=== PATIENT | female | born 1955 | race Caucasian/White ===

== ENCOUNTER → 2017-06-15 | Outpatient (CLI) | payer MEDICARE, OTHER ==
[~2017-06-15] MED LIST: AC500T; ACETAMINOPHEN; CENESTIN; CLN150C PO; DICL50TA3 PO; ESTR1POW11 MC; ORPH100T PO; TRM50T PO; [UNRECOGNIZED DRUG - OTHER]
== END ==
LOC: RAD 11:05
PROVIDERS: ATTEND Nurse Practitioner Family
DX: Z12.31 Encounter for screening mammogram for malignant neoplasm of breast (principal)
CPT/HCPCS: 77067

== ENCOUNTER → 2017-08-06 | Outpatient (CLI) | payer MEDICARE ==
--- NOTE | 2017-08-06 08:51 | Diagnostic Imaging Report ---
INDICATION: Left breast density. Patient presents for additional views. COMPARISON: Screening study from 06/15/2017. TECHNIQUE: The patient returned and spot compression CC and mediolateral 3-D mammography was performed. In addition, a conventional mediolateral 3-D mammogram was performed. The current study was also evaluated with a Computer Aided Detection (CAD) system. FINDINGS: The left breast is markedly dense and heterogeneous. No mass in the retroareolar left breast is identified with additional views. This area may represent fibroglandular tissue. There are benign calcifications present. IMPRESSION: Additional views fail to demonstrate a discrete mass. Even so, further evaluation of the retroareolar left breast with ultrasound is recommended. ACR BI-RADS Category 0: Incomplete. (Needs additional imaging evaluation). Result letter will be mailed to the patient. Note: At least 10% of breast cancer is not imaged by mammography. Dictated by: Dictated on workstation # [id number]
--- NOTE | 2017-08-06 09:25 | Diagnostic Imaging Report ---
Indication: Left breast density. Comparison: Correlation is made with diagnostic mammogram earlier the same day. The current study was also evaluated with a Computer Aided Detection (CAD) system. Findings: Sonographic interrogation of the retroareolar left breast was performed. There is a tiny cyst at the 2 o'clock location of the left breast, 3 cm from the nipple measuring 8 mm x 6 mm. There are some mildly prominent retroareolar ducts present. No solid masses detected. Impression: BI-RADS category 2 Mildly prominent retroareolar ducts are noted and there is a small simple cyst present. No suspicious abnormality is detected. The patient may return to routine annual screening mammography. ACR BI-RADS Category 2: Benign findings. Result letter will be mailed to the patient. Note: At least 10% of breast cancer is not imaged by mammography. Dictated by: Dictated on workstation # [id number]
== END ==
LOC: RAD 08:26
PROVIDERS: ATTEND Nurse Practitioner Family
DX: R92.8 Other abnormal and inconclusive findings on diagnostic imaging of breast (principal)
CPT/HCPCS: 76642

== ENCOUNTER → 2020-01-19 | Outpatient (CLI) | payer MEDICARE ==
--- NOTE | 2020-01-22 09:51 | Diagnostic Imaging Report ---
INDICATION: Routine screening. Comparison is made with prior mammogram from 06/15/2017. 2-D and 3-D bilateral screening mammography was performed with CAD. Both breasts remain heterogeneously dense, limiting the sensitivity of mammography. Occasional benign calcifications are noted. No dominant mass or malignant appearing microcalcifications are seen. Axillae are unremarkable. IMPRESSION: BI-RADS Category 2. No mammographic features suspicious for malignancy are identified. ACR BI-RADS Category 2: Benign findings. Result letter will be mailed to the patient. Note: At least 10% of breast cancer is not imaged by mammography. Dictated by: Dictated on workstation # [id number]
== END ==
LOC: RAD 14:54
PROVIDERS: ATTEND Nurse Practitioner Family
DX: Z12.31 Encounter for screening mammogram for malignant neoplasm of breast (principal); Z79.890 Hormone replacement therapy
CPT/HCPCS: 77063; 77067

== ENCOUNTER 2023-04-16 11:34 | Emergency (ER) | payer MEDICARE ==
[~2023-04-16] VITALS: Ht 160 cm; Wt 99.7 kg
--- NOTE | 2023-04-16 12:11 | ED Back Pain ---
General Chief Complaint: Back Problems Stated Complaint: BACK PAIN Nursing Triage Note: BACK PAIN STATEDT 04/10/23. PROGRESSIVELY GETTING WORSE. WENT TO PCP ON WEDNESDAY. RECEIVED ORAL STERIODS. WORKED UP FOR UTI AND NEGATIVE. FINISHED ORAL STERIODS TODAY BACK PAIN IS STILL CONTINUING TO GET WORSE. 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 PAIN IS IN THE LEFT FLANK THAT RADIATES ANTERIORLY AND DOWN THE ANTERIOR LEFT THIGH. Source of Information: Patient Exam Limitations: No Limitations History of Present Illness Date Seen by Provider: Apr 16, 2023 Time Seen by Provider: 11:59 Initial Comments 67-year-old female presents to the ER with complaint of left lower back pain close to her buttock that radiates to her left hip and to her anterior left thigh to just above her left knee. She states that it started out as a left lower back pain on 04/10/2023. She reports that this has progressively gotten worse. She saw her primary care provider on Wednesday who gave her a shot of Toradol and a steroid burst. She took her last dose of the steroid this morning. She reports that the pain was getting better, but became worse again yesterday. She went and saw her primary again today who gave her a shot of Toradol and referred her to the ER. She denies saddle paresthesia, bowel or bladder incontinence. She reports intermittent weakness in her legs, states that she thinks it is related to her bad knees, states there has been no change in this. She already takes Flexeril and hydrocodone for chronic knee pain, states she took these this morning. She denies fevers and dysuria. She states that her primary care provider checked her urine to evaluate for kidney infection, states she did not have an infection. Allergies and Home Medications Allergies Coded Allergies: Acetaminophen (Unverified Allergy, Mild, 11/02/08) Amoxicillin (Unverified Allergy, Mild, 10/05/08) Erythromycin Base (Unverified Allergy, Mild, 10/05/08) Ibuprofen (Unverified Allergy, Mild, 10/05/08) Ketorolac (Unverified Allergy, Mild, ITCHING, 11/02/08) Potassium Clavulanate (Unverified Allergy, Mild, 10/05/08) Propoxyphene (Unverified Allergy, Mild, 11/02/08) Tramadol (Unverified Allergy, Mild, 11/02/08) Uncoded Allergies: [id number] (DARVOCET-N 100) (Allergy, Mild, 10/05/08) PCN (Allergy, Mild, 11/02/08) Patient Home Medication List Home Medication List Reviewed: Yes Estradiol Hemihydrt,Micronized (Estradiol) 1 Gm Powder, 1 GM MC DAILY, (Reported) Entered as Reported by: SCAR MACDONALD on 07/08/132047 Orphenadrine Citrate (Norflex) 100 Mg Tablet.sa, 100 MG PO BID Prescribed by: GERALD FLOYD on 07/09/13 002 Review of Systems Constitutional: see HPI Past Kiscvcu-Mqlgme-Rcqnnz Hx Immunizations Up To Date Influenza Vaccine Up-to-Date: No; Not Current Past Medical History Reproductive Disorders: No Sexually Transmitted Disease: No Physical Exam Vital Signs Vital Signs - First Documented 04/16/23 11:41 Temp 36.4 Pulse 83 Resp 20 B/P (MAP) 142/85 (104) Pulse Ox 96 O2 Delivery Room Air Capillary Refill : Less Than 3 Seconds Height, Weight, BMI Height: '" Weight: 192lbs. oz. 87.284473nc; 38.00 BMI Method: General Appearance: WD/WN, Mild Distress Neck: Normal Inspection, Supple Cardiovascular: Regular Rate, Rhythm Respiratory: Lungs Clear, Normal Breath Sounds, No Accessory Muscle Use, No Re spiratory Distress Back: No Vertebral Tenderness Extremity: Normal Inspection, Normal Range of Motion Neurologic/Psychiatric: Alert, Normal Mood/Affect Skin: Normal Color, Warm/Dry Progress/Results/Core Measures Results/Orders Lab Results Laboratory Tests Test 04/16/23 13:00 04/16/23 13:46 Range/Units Urine Color YELLOW Urine Clarity CLEAR Urine pH 5.5 5-9 Urine Specific [place] 1.025 H 1.016-1.022 Urine Protein TRACE H NEGATIVE Urine Glucose (UA) NEGATIVE NEGATIVE Urine Ketones 2+ H NEGATIVE Urine Nitrite NEGATIVE NEGATIVE Urine Bilirubin 1+ H NEGATIVE Urine Urobilinogen 0.2 < = 1.0 MG/DL Urine Leukocyte Esterase NEGATIVE NEGATIVE Urine RBC (Auto) TRACE H NEGATIVE Urine RBC 0-2 /HPF Urine WBC 0-2 /HPF Urine Squamous Epithelial Cells 5-10 /HPF Urine Crystals PRESENT H /LPF Urine Amorphous Sediment MOD ROSI URATES H /LPF Urine Bacteria TRACE /HPF Urine Casts NONE /LPF Urine Mucus LARGE H /LPF Urine Culture Indicated NO White Blood Count 10.3 4.3-11.0 10^3/uL Red Blood Count 5.26 H 3.80-5.11 10^6/uL Hemoglobin 15.1 11.5-16.0 g/dL Hematocrit 47 35-52 % Mean Corpuscular Volume 90 80-99 fL Mean Corpuscular Hemoglobin 29 25-34 pg Mean Corpuscular Hemoglobin Concent 32 32-36 g/dL Red Cell Distribution Width 13.7 10.0-14.5 % Platelet Count 369 130-400 10^3/uL Mean Platelet Volume 10.0 9.0-12.2 fL Immature Granulocyte % (Auto) 0 % Neutrophils (%) (Auto) 93 H 42-75 % Lymphocytes (%) (Auto) 6 L 12-44 % Monocytes (%) (Auto) 1 0-12 % Eosinophils (%) (Auto) 0 0-10 % Basophils (%) (Auto) 0 0-10 % Neutrophils # (Auto) 9.6 H 1.8-7.8 10^3/uL Lymphocytes # (Auto) 0.6 L 1.0-4.0 10^3/uL Monocytes # (Auto) 0.1 0.0-1.0 10^3/uL Eosinophils # (Auto) 0.0 0.0-0.3 10^3/uL Basophils # (Auto) 0.0 0.0-0.1 10^3/uL Immature Granulocyte # (Auto) 0.0 0.0-0.1 10^3/uL Neutrophils % (Manual) 95 % Lymphocytes % (Manual) 4 % Monocytes % (Manual) 1 % Blood Morphology Comment NORMAL Sodium Level 137 135-145 MMOL/L Potassium Level 4.0 3.6-5.0 MMOL/L Chloride Level 100 98-107 MMOL/L Carbon Dioxide Level 21 21-32 MMOL/L Anion Gap 16 H 5-14 MMOL/L Blood Urea Nitrogen 17 7-18 MG/DL Creatinine 0.84 0.60-1.30 MG/DL Estimat Glomerular Filtration Rate 76 BUN/Creatinine Ratio 20 Glucose Level 143 H 70-105 MG/DL Calcium Level 9.6 8.5-10.1 MG/DL Corrected Calcium 9.2 8.5-10.1 MG/DL Total Bilirubin 0.8 0.1-1.0 MG/DL Aspartate Amino Transf (AST/SGOT) 19 5-34 U/L Alanine Aminotransferase (ALT/SGPT) 18 0-55 U/L Alkaline Phosphatase 74 40-136 U/L Total Protein 8.7 H 6.4-8.2 GM/DL Albumin 4.5 3.2-4.5 GM/DL My Orders Orders - ALEJANDRA MORIN APRN Orphenadrine Inj (Ed Only) (Orphenadrine (04/16/23 12:15) Fentanyl Injection (Fentanyl Injection (04/16/23 12:15) Dexamethasone Injection (Dexamethasone (04/16/23 12:15) Ua Culture If Indicated (04/16/23 12:12) Comprehensive Metabolic Panel (04/16/23 13:42) Ed Iv/Invasive Line Start (04/16/23 13:42) Cbc And Automated Diff (04/16/23 13:42) Ct Abdomen/Pelvis Wo (04/16/23 13:42) Hydromorphone Injection (Hydromorphone (04/16/23 13:45) Manual Differential (04/16/23 13:46) Medications Given in ED Current Medications Medications Dose Ordered Sig/Debora Route Start Time Stop Time Status Last Admin Dose Admin Dexamethasone Sodium Phosphate 10 mg ONCE ONCE IM 04/16/23 12:15 04/16/23 12:16 DC 04/16/23 12:21 10 MG Fentanyl Citrate 75 mcg ONCE ONCE IM 04/16/23 12:15 04/16/23 12:16 DC 04/16/23 12:22 75 MCG Hydromorphone HCl 0.25 mg ONCE ONCE IVP 04/16/23 13:45 04/16/23 13:46 DC 04/16/23 13:54 0.25 MG Orphenadrine Citrate 60 mg ONCE ONCE IM 04/16/23 12:15 04/16/23 12:16 DC 04/16/23 12:21 60 MG Vital Signs/I&O 04/16/23 04/16/23 11:41 17:39 Temp 36.4 Pulse 83 Resp 20 B/P (MAP) 142/85 (104) 132/74 Pulse Ox 96 O2 Delivery Room Air Blood Pressure Mean: 104 Progress Progress Note : Progress Note Patient seen and evaluated, resting in bed, mild distress. Based on exam and symptoms, this is likely sciatic nerve pain. Will check a urinalysis, and treat with Norflex, fentanyl, and Decadron. Patient already received Toradol today. Urinalysis showed trace RBCs, negative for infection. Due to red blood cells in urine, CT abdomen pelvis ordered to rule out kidney stones. CBC and CMP also ordered. CBC shows slightly elevated RBC 5.26, elevated neutrophil percentage 73. CMP shows slightly elevated anion gap 16, glucose 143. Elevated glucose likely related to recent steroids. CT abdomen pelvis shows possible cyst in right hepatic lobe, also a right renal cyst. Also shows a burst fracture at L3 with retropulsion causing moderate spinal stenosis. 1527 I called and spoke with the neurosurgeon, Dr. Sharif, at [facility] in [place]. He recommends patient come to [facility] for admission for further evaluation of fracture and possible treatment. He is going to evaluate the CT scans as well. Currently [facility] is on diversion, waiting for a callback from them to confirm bed placement. 1606 I called and spoke with Dr. Sharif and [facility] again. He recommends transfer to the ER. I spoke to Dr. Dasilva, ER physician, he excepted patient for transfer. 1654 we were unable to secure transport via ambulance. Patient's family is going to take her to [facility] by private vehicle. I have called [facility] to inform them. Diagnostic Imaging Diagonstic Imaging: CT Plain Films/CT/US/NM/MRI: abdomen, pelvis Comments [facility], [place] NAME: [facility] POWERS [facility] REC#: [id number] PT STATUS: REG ER : 1955 PHYSICIAN: ALEJANDRA MORIN APRN ADMIT DATE: 04/16/23/ER Signed Date of Exam:04/16/23 CT ABDOMEN/PELVIS WO PROCEDURE: CT abdomen and pelvis without contrast. TECHNIQUE: Multiple contiguous axial images were obtained through the abdomen and pelvis without the use of intravenous contrast. Auto Exposure Controls were utilized during the CT exam to meet ALARA standards for radiation dose reduction. INDICATION: Left flank pain radiating into the groin. FINDINGS: Unenhanced images of liver and spleen reveal no suspicious lesion, although there may be an approximately 1.5 cm cyst in the inferior right hepatic lobe. No pancreatic or adrenal gland abnormality is identified. Right parapelvic renal cyst is present reaching 2.3 cm in diameter. Otherwise, kidneys are unremarkable without evidence of urinary tract calculus or obstruction. There is no evidence of free fluid within the abdomen or pelvis. No organized fluid collection is identified. Unopacified bladder is unremarkable. There is mild compression fracture of L3 involving the inferior endplate. There is retropulsion into the spinal canal, resulting in moderate central spinal stenosis. IMPRESSION: No acute abnormality is seen within the abdomen or pelvis, although there is a probable acute inferior endplate burst fracture of L3 with retropulsion causing moderate spinal stenosis. MRI may be of value for additional characterization. Dictated by: Dictated on workstation # [id number] Dict: 04/16/23 1413 Trans: 04/16/231437 AS6 [id number] Interpreted by: GALLO GAGE MD Electronically signed by: GALLO GAGE MD 04/16/23 1438 Departure Impression Primary Impression: Fracture of lumbar vertebra Additional Impression: Sciatic nerve palsy, left Disposition: XFER SHT-TRM HOSP Condition: Against Medical Advice Transfer Transfer Reason: Exceeds level of care Time Spoke to Accepting Phy: 15:[address] Dasilva, ER physician accepted patient. Dr. Sharif, neurosurgery accepted patient. Transfer Time: 16:15 Transfer Facility: [facility] Method of Transfer: Private Vehicle Departure-Patient Inst. Referrals: GABRIELLE SU MD (PCP) Primary Care Physician [facility] (Family) Primary Care Physician ALEJANDRA MORIN APRN Apr 16, 2023 12:11
[2023-04-16] MEDS ORDERED: dexAMETHasone INJ 10 MG/ML 1 ML VIAL IM ONE (12:15)
[2023-04-16] MEDS ORDERED: ORPHENADRINE 60 MG/2 ML AMP (ED ONLY) IM ONE (12:15)
[2023-04-16] MEDS ORDERED: fentaNYL INJECTION 100 MCG/2 ML VIAL IM ONE (12:15)
[2023-04-16 13:38] LABS: BACTERIA,URINE TRACE /HPF; BILIRUBIN,URINE 1+ (NEGATIVE); CLARITY,URINE CLEAR; COLOR,URINE YELLOW; GLUCOSE, URINE (UA) NEGATIVE (NEGATIVE); KETONES,URINE 2+ (NEGATIVE); LEUKOCYTE ESTERASE ,URINE NEGATIVE (NEGATIVE); NITRITE,URINE NEGATIVE (NEGATIVE); PH,URINE 5.5 (5-9); PROTEIN,URINE TRACE (NEGATIVE); RBC,URINE 0-2 /HPF; WBC,URINE 0-2 /HPF
[2023-04-16 13:39] LABS: AMORPHOUS SEDIMENT,UR MOD AMOR URATES /LPF
[2023-04-16] MEDS ORDERED: HYDROmorphone INJECTION 2 MG/ML VIAL IVP ONE (13:45)
[2023-04-16 13:56] LABS: BASOPHILS % (AUTO) 0 % (0-10); EOSINOPHILS % (AUTO) 0 % (0-10); HEMATOCRIT 47 % (35-52); HEMOGLOBIN 15.1 g/dL (11.5-16.0); LYMPHOCYTES # (AUTO) 0.6 10^3/uL (1.0-4.0); LYMPHOCYTES % (AUTO) 6 % (12-44); MEAN CORPUSCULAR HEMOGLOBIN 29 pg (25-34); MEAN CORPUSCULAR HGB CONC 32 g/dL (32-36); MEAN CORPUSCULAR VOLUME 90 fL (80-99); MONOCYTES # (AUTO) 0.1 10^3/uL (0.0-1.0); MONOCYTES % (AUTO) 1 % (0-12); NEUTROPHILS # (AUTO) 9.6 10^3/uL (1.8-7.8); NEUTROPHILS % (AUTO) 93 % (42-75); PLATELET COUNT 369 10^3/uL (130-400); WHITE BLOOD COUNT 10.3 10^3/uL (4.3-11.0)
[2023-04-16 14:06] LABS: ALBUMIN 4.5 GM/DL (3.2-4.5)
[2023-04-16 14:08] LABS: CALCIUM 9.6 MG/DL (8.5-10.1)
[2023-04-16 14:09] LABS: TOTAL PROTEIN 8.7 GM/DL (6.4-8.2)
[2023-04-16 14:11] LABS: BILIRUBIN,TOTAL 0.8 MG/DL (0.1-1.0)
[2023-04-16 14:13] LABS: CREATININE SERUM 0.84 MG/DL (0.60-1.30)
[2023-04-16 14:17] LABS: LYMPHOCYTES % (MANUAL) 4 %; MONOCYTES % (MANUAL) 1 %; NEUTROPHILS % (MANUAL) 95 %; RBC MORPH NORMAL
--- NOTE | 2023-04-16 14:22 | Diagnostic Imaging Report ---
PROCEDURE: CT abdomen and pelvis without contrast. TECHNIQUE: Multiple contiguous axial images were obtained through the abdomen and pelvis without the use of intravenous contrast. Auto Exposure Controls were utilized during the CT exam to meet ALARA standards for radiation dose reduction. INDICATION: Left flank pain radiating into the groin. FINDINGS: Unenhanced images of liver and spleen reveal no suspicious lesion, although there may be an approximately 1.5 cm cyst in the inferior right hepatic lobe. No pancreatic or adrenal gland abnormality is identified. Right parapelvic renal cyst is present reaching 2.3 cm in diameter. Otherwise, kidneys are unremarkable without evidence of urinary tract calculus or obstruction. There is no evidence of free fluid within the abdomen or pelvis. No organized fluid collection is identified. Unopacified bladder is unremarkable. There is mild compression fracture of L3 involving the inferior endplate. There is retropulsion into the spinal canal, resulting in moderate central spinal stenosis. IMPRESSION: No acute abnormality is seen within the abdomen or pelvis, although there is a probable acute inferior endplate burst fracture of L3 with retropulsion causing moderate spinal stenosis. MRI may be of value for additional characterization. Dictated by: Dictated on workstation # [id number]
[2023-04-16 17:39] VITALS: BP 132/74
== END 2023-04-16 17:41 | disposition short-term general hospital (02) ==
LOC: EDUNIT# 11:34 → ER 11:37
DX: S32.031A Stable burst fracture of third lumbar vertebra, initial encounter for closed fracture (principal); G57.02 Lesion of sciatic nerve, left lower limb; X58.XXXA Exposure to other specified factors, initial encounter
CPT/HCPCS: 36415; 74176; 80053; 81000; 85007; 85027